=== PATIENT | female | born 2000 | race Caucasian/White ===

== ENCOUNTER 2023-12-30 17:29 | Inpatient (IN) ==
[2023-12-30 18:11] LABS: Pregnancy Test, Urine Negative (Negative)
[2023-12-30 18:12] LABS: Basophils # (auto) 0.05 K/uL (0.00-0.20); Basophils % (auto) 0.6 %; Eosinophils # (auto) 0.02 K/uL (0.00-0.50); Eosinophils % (auto) 0.2 %; Hematocrit (blood only) 44.2 % (37.0-47.0); Hemoglobin 15.6 g/dl (12.0-16.0); Immature Granulocytes # (auto) 0.03 K/uL (0.01-0.20); Immature Granulocytes % (auto) 0.3 %; Lymphocytes # (auto) 2.22 K/uL (1.20-3.40); Lymphocytes % (auto) 25.7 %; Mean Corpuscular Hgb Conc 35.3 g/dL (32.0-36.0); Mean Corpuscular Volume 87.7 fL (80.0-100.0); Mean Platelet Volume 10.2 fL (9.4-12.4); Monocytes # (auto) 0.47 K/uL (0.11-0.59); Monocytes % (auto) 5.4 %; Neutrophils # (auto) 5.85 K/uL (1.40-6.50); Neutrophils % (auto) 67.8 %; Platelet Count 331 K/uL (130-400); RDW Coefficient of Variation 11.6 % (11.5-14.5); RDW Standard Deviation 36.7 fL (36.4-46.3); Red Blood Count 5.04 M/uL (4.20-5.40); White Blood Count 8.64 K/ul (4.8-10.8)
[2023-12-30 18:16] LABS: Appearance Urine Turbid (Clear); Bacteria Urine Automated 1+ (None Seen); Bilirubin Urine Negative (Negative); Blood Urine Negative (Negative); Cast Urine Automated 0-2 /lpf (0-2); Color Urine Yellow; Epithelial Cell Urine Auto 0-2 /hpf (0-2); Glucose Urine UA Negative (Negative); Ketones Urine Trace (Negative); Leukocyte Esterase Urine Negative (Negative); Nitrite Urine Negative (Negative); Protein Urine Negative (Negative); RBC Urine Automated 0-2 /hpf (0-2); Specific Gravity Urine 1.021 (1.000-1.030); Urobilinogen Urine Negative (Negative); WBC Urine Automated 0-5 /hpf (0-5)
[2023-12-30 18:28] LABS: Albumin Globulin Ratio 1.8 (0.9-2); Albumin Level 5.1 gm/dl (3.4-5.0); BUN Creatinine Ratio 12.8 (10-20); Bilirubin,Total 1.1 mg/dl (0.2-1.0); Calcium 9.9 mg/dl (8.6-10.3); Globulin 2.9 gm/dl (2.5-4.0); Potassium 3.7 mmol/L (3.5-5.1)
[2023-12-30 18:33] LABS: Acetaminophen < 3 ug/ml (10-30); Salicylate < 3.0 mg/dl (3.0-30)
[2023-12-30 18:33] LABS: Amphetamines+Metham, Urine Neg (Neg); Barbiturates, Urine Neg (Neg); Benzodiazepine, Urine Neg (Neg); Cocaine, Urine Neg (Neg); Fentanyl, Urine Neg (Neg); MDMA (Ecstacy), Urine Neg (Neg); Marijuana, Urine Neg (Neg); Methadone, Urine Neg (Neg); Opiate, Urine Neg (Neg); Phencyclidine, Urine Neg (Neg)
[2023-12-30 18:42] LABS: Thyroid Stimulating Hormone 0.863 uIu/ml (0.300-4.500)
--- NOTE | 2023-12-30 19:54 | Emergency Department Note ---
Impression & Plan Depression, Deliberate self-cutting, Suicidal ideation ED Provider Note ED Provider Note NAME: VENTURA JUNG AGE:23 SEX: Female : 2000 ARRIVES VIA: Private vehicle INFORMANT: Patient ED PROVIDER(s): Shawna Zamorano DO CHIEF COMPLAINT: Mental health evaluation HPI: This is a 23-year-old female who presents for mental health evaluation. 302 petitioning statement written by [facility] staff whom she has been seeing in addition to mental health providers at [facility]. Patient admits to increased depression and self-harm with cutting yesterday. She has had thoughts of suicidal ideation although no plan. She has previously been inpatient for mental health treatment. She denies any homicidal ideation. She states her medications were adjusted 2 weeks ago and states while she has not had any side effects she is also not noticed any improvement. PAST MEDICAL HISTORY:See Below PAST SURGICAL HISTORY:See Below FAMILY HISTORY:See Below SOCIAL HISTORY:See Below HOME MEDICATIONS:See Below ALLERGIES:See Below VITALS:See Below PHYSICAL EXAMINATION: GENERAL: alert, well appearing, well nourished, no distress, non-toxic EYE EXAM: normal conjunctiva, PERRL and EOM's grossly intact OROPHARYNX: no exudate, no erythema, lips, buccal mucosa, and tongue normal and mucous membranes are moist NECK: supple, no nuchal rigidity, no adenopathy, non-tender LUNGS: Clear to auscultation. Normal chest wall mechanics, no w/r/r HEART: no murmurs, S1 normal and S2 normal ABDOMEN: abdomen soft, non-tender, normo-active bowel sounds, no masses, no rebound or guarding. BACK: Back is symmetrical on inspection and there is no deformity, no midline tenderness, no CVA tenderness. SKIN: no rashes, petechiae, orbruising UPPER EXTREMITIES: upper extremities are grossly normal. FROM, nml pulses b/l. LOWER EXTREMITIES: No pitting edema. FROM, nml pulses b/l. NEURO EXAM: Normal sensorium, cranial nerves II-XII grossly intact, normal speech, no facial droop,nogross weakness of arms, no gross weakness of legs. Gross sensation intact. No ataxia. Vital Signs: reviewed and remarkable Differential Diagnosis: mood disorder, suicidal ideation, anxiety, depression, substance abuse, toxidrome, infection, hypoglycemia, electrolyte abnormalities, ICH as well as others were considered. MEDICAL DECISION MAKING: This is a 23-year-old female who presents emerged part for mental health evaluation. 302 petitioning statement written by staff at [facility]. Labs drawn and sent urine collected and sent per protocol. These are reassuring. Patient had no concern for any injury or illness. Patient seen and evaluated by case management and referred to [facility] for additional inpatient treatment. Patient willing to sign and voluntarily so 302 was declined. Patient accepted to [facility] for additional inpatient mental health treatment. Consultation(s): 1944: Please see case management note for their formal evaluation. 302 denied by me as patient willing to sign in. She was referred to [facility] who was down her at this time to begin their evaluation process. 2149: Patient accepted by . ER Treatment Provided: See below Diagnostics Interpreted By Me: -Laboratory studies: As stated above and show below. Triage Nursing Note Reviewed Prior/Outside Records Reviewed Past Med/Surg History Problem List (Updated 12/30/23 @ 19:54 by Shawna Zamorano, ) Suicidal ideation (Acute) Deliberate self-cutting (Acute) Depression (Acute) Social History Smoking Status: Current every day smoker Tobacco Type: E-cigarettes / Vaping Preferred Language: Danish Gender Identity: Female Allergies Allergies Allergy/AdvReac Type Severity Reaction Status Date / Time No Known Allergies Allergy Verified 12/30/23 17:56 Home Meds Home Medications Medication Instructions Recorded Confirmed BuSpar 30 mg PO HS 12/30/23 12/30/23 Lamictal 200 mg PO HS 12/30/23 12/30/23 Topamax 100 mg PO HS 12/30/23 12/30/23 Results & Data (ED) Vital Signs Vital Signs - 24 hr 12/30/23 17:46 12/30/23 19:45 Temperature 36.7 C Temperature Source Oral Pulse Rate 104 H Pulse Rate [Right Finger] 76 Pulse Rhythm [Right Finger] Regular Pulse Strength [Right Finger] Normal Respiratory Rate 19 20 Respiratory Effort / Characteristics Non-Labored Spontaneous Respiratory Depth Normal Respiratory Pattern Regular Blood Pressure 150/90 H Blood Pressure [Left Arm] 102/67 Blood Pressure Mean 110 Blood Pressure Mean [Left Arm] 78 Blood Pressure Position [Left Arm] Lying Pulse Oximetry 100 100 Oxygen Delivery Method Room Air Room Air Sepsis Recent Fever Within 48 Hours No Sepsis New/Unexplained Change in Mental Status No Sepsis Action Taken by Nursing No Action Required Laboratory Data 12/30/23 17:47 12/30/23 17:47 Lab Results 12/30/23 12/30/23 12/30/23 Range/Units 17:39 17:41 17:47 WBC 8.64 (4.8-10.8) K/ul RBC 5.04 (4.20-5.40) M/uL Hgb 15.6 (12.0-16.0) g/dl Hct 44.2 (37.0-47.0) % MCV 87.7 (80.0-100.0) fL MCH 31.0 (25.0-34.0) pg MCHC 35.3 (32.0-36.0) g/dL RDW Std Deviation 36.7 (36.4-46.3) fL RDW Coeff of Nai 11.6 (11.5-14.5) % Plt Count 331 (130-400) K/uL MPV 10.2 (9.4-12.4) fL Immature Gran % (Auto) 0.3 % Neut % (Auto) 67.8 % Lymph % (Auto) 25.7 % Garvin % (Auto) 5.4 % Eos % (Auto) 0.2 % Baso % (Auto) 0.6 % Neut # (Auto) 5.85 (1.40-6.50) K/uL Lymph # (Auto) 2.22 (1.20-3.40) K/uL Garvin # (Auto) 0.47 (0.11-0.59) K/uL Eos # (Auto) 0.02 (0.00-0.50) K/uL Baso # (Auto) 0.05 (0.00-0.20) K/uL Immature Gran # (Auto) 0.03 (0.01-0.20) K/uL Sodium 140 (136-145) mmol/L Potassium 3.7 (3.5-5.1) mmol/L Chloride 109 H (98-107) mmol/L Carbon Dioxide 23 (21-32) mmol/L Anion Gap 8 (3-11) BUN 12 (6-23) mg/dl Creatinine 0.94 (0.6-1.2) mg/dl Est Cr Clr Drug Dosing 93.0 ml/min eGFR 86.90 BUN/Creatinine Ratio 12.8 (10-20) Glucose 72 (70-99(Fasting)) mg/dl Calcium 9.9 (8.6-10.3) mg/dl Total Bilirubin 1.1 H (0.2-1.0) mg/dl AST 14 (13-39) U/L ALT 14 (7-52) U/L Alkaline Phosphatase 71 (34-104) U/L Total Protein 8.0 (6.0-8.3) gm/dl Albumin 5.1 H (3.4-5.0) gm/dl Globulin 2.9 (2.5-4.0) gm/dl Albumin/Globulin Ratio 1.8 (0.9-2) TSH 0.863 (0.300-4.500) uIu/ml Urine Color Yellow Urine Appearance Turbid A (Clear) Urine pH 8.0 H (4.5-7.5) Ur Specific [place] 1.021 (1.000-1.030) Urine Protein Negative (Negative) Urine Glucose (UA) Negative (Negative) Urine Ketones Trace H (Negative) Urine Blood Negative (Negative) Urine Nitrite Negative (Negative) Urine Bilirubin Negative (Negative) Urine Urobilinogen Negative (Negative) Ur Leukocyte Esterase Negative (Negative) Urine WBC (Auto) 0-5 (0-5) /hpf Urine RBC (Auto) 0-2 (0-2) /hpf U Hyaline Cast (Auto) 0-2 (0-2) /lpf U Epithel Cells (Auto) 0-2 (0-2) /hpf Urine Bacteria (Auto) 1+ H (None Seen) Urine Test Negative (Negative) Salicylates < 3.0 L (3.0-30) mg/dl Urine Opiates Screen Neg (Neg) Ur Methadone, Qual Neg (Neg) Urine Fentanyl Screen Neg (Neg) Acetaminophen < 3 L (10-30) ug/ml Urine Barbiturates Neg (Neg) Ur Phencyclidine (PCP) Neg (Neg) U Amphetamin/Meth Scrn Neg (Neg) MDMA (Ecstasy) Screen Neg (Neg) U Benzodiazepines Scrn Neg (Neg) Ur Cocaine Metabolite Neg (Neg) U Marijuana (THC) Screen Neg (Neg) Ethyl Alcohol mg/dL < 10.0 (<10.0) mg/dl SARS-CoV-2, RNA, NAAT NEGATIVE (NEGATIVE) Discharge Plan Visit Data Chief Complaint: Mental Health Evaluation Stated Complaint: [facility] ED Provider: Shawna Zamorano Discharge Problem: Depression, Deliberate self-cutting, Suicidal ideation Forms Stand Alone Forms: [facility], Suicide Prevention Resources Prescriptions Prescriptions: No Action BuSpar 30 mg tablet 30 mg PO HS Lamictal 200 mg tablet 200 mg PO HS Topamax 100 mg tablet 100 mg PO HS Referrals [facility] [Primary Care Provider] -
[2023-12-30] MEDS ORDERED: BISMUTH SUBSALICYLATE 262 MG CHEW PO PRN (22:50)
[2023-12-30] MEDS ORDERED: ACETAMINOPHEN 325 MG TAB PO PRN (22:50)
[2023-12-30] MEDS ORDERED: SODIUM CHLORIDE 0.65% NA SOLN 45 ML (OCEAN) PRN (22:50)
[2023-12-30] MEDS ORDERED: MAGNESIUM HYDROXIDE SUSP 30 ML UDC PO PRN (22:50)
[2023-12-30] MEDS ORDERED: hydrOXYzine HCl 25 MG TAB PO PRN ×2 (22:50)
[2023-12-30] MEDS ORDERED: ALUMINUM/MAGNESIUM SUSP 30 ML UDC PO PRN (22:50)
[2023-12-30] MEDS: lamoTRIgine 100 MG TAB PO SCH (23:28)
[2023-12-30] MEDS: busPIRone 15 MG TAB PO SCH (23:28)
[2023-12-30] MEDS: TOPIRAMATE 100 MG TAB PO SCH (23:28)
--- NOTE | 2023-12-31 09:22 | History & Physical ---
Date of Service December 31, 2023 Impression / Recommendations Impression DISHA JUNG is a 23-year-old F who currently lives alone on campus in the dorms, has a history of bipolar disorder and anxiety, and was admitted on 12/30/23 21:28 on a 201 voluntary commitment for escalating self-harm and increased SI. Diagnostically consistent with unspecified depression with differential including MDD vs bipolar depression vs adjustment disorder with depressed mood vs acute exacerbation of BPD in context of feeling abandonment of girlfriend and therapist absences. Discussed medication treatment options in detail. She wishes to continue with prior to admission lamictal for mood stabilization, Buspar for anxiety and Topimax off label for self-harm urges, weight gain. Discussed risks, benefits and alternatives as well as side effects including Aleksandar's Joseph rash with lamictal. MNPR due to trauma history and significant social discomfort around new people related to this Overall I spent a total of 75 minutes for this admission including review of chart records, review of labwork, direct evaluation of the patient, counseling the patient, ordering medication, risk assessment, discussion with the psychiatric liason RN and documentation in the electronic health record. (1) Deliberate self-cutting: (2) Depression: Plan 12/31/2023: The patient was admitted to the [facility] ([facility] inpatient mental health unit) on q15 min checks (behavioral with suicide precautions) for safety. The patient will participate in group, recreational, and milieu therapies and will be offered additional individual and family sessions as clinically appropriate. -Continue EVENT EXECUTIVE lamictal, Buspar, Topimax -Screening questionnaires of Yoselin BPD and Mood Disorder Questionnaire -Reviewed option for support meeting which she will consider -Discussed option for referral for IOP with DBT focus, she declines this Inventory Assets Strengths: supportive relationships, willing to get treatment Needs: safety and stabilization, medication adjustment, additional coping skills, increased outpatient services Suicide Risk Level Suicide Risk Level: Moderate (q15 min suicide checks) (SI and self-harm prior to admission but denies SI currently, feels better supported by friends and feels safe in the hospital and able to ask for support if needed) Risk Factors Assessment Male: No : Yes Do You Have Access To A Gun?: No Health Problems: No Mental Health Diagnoses: Yes Substance Use Disorders: No Previous Attempt: Yes (interrupted attempt) Family History of Suicide: No Previous Psychiatric Hospitalization: Yes Hopelessness: No Protective Factors Assessment Employed: No Stable Relationships: Yes Supportive Family: Yes Good Rapport with Provider: Yes Psychiatric History Identifying Data DISHA JUNG is a 23-year-old F who currently lives alone on campus in the dorms, has a history of bipolar disorder and anxiety, and was admitted on 12/30/23 21:28 on a 201 voluntary commitment for escalating self-harm and increased SI. Chief Complaint "This bed s*cks". History of Present Illness Disha presented to the hospital at the recommendation of a [facility] therapist who completed a 302 petition after reporting increased SI and self-harm via cutting using a estimator paperboard boxes. She identifies recent stressors including academic difficulty and increased social isolation since her girlfriend graduated last spring and moved out of state. She cuts on average every 3 days and feels this has been "less intense" overall compared with her self-harm behaviors historically but has increased since October which she attributes to school stress and loneliness. On evening she had an acute worsening of SI while self-harming and called [facility] Crisis line and was able to safety plan but after meeting with [facility] therapist the following day she reported increased depression and thoughts of suicide using the estimator paperboard boxes she self-harms with. Reflects that "I'm usually good at distracting myself when I feel like that but no one was available". Expands that she hasn't been able to meet with her long-time outpatient therapist due to forgetting to get her scheduled so they haven't meet in about three weeks (she is scheduled for upcoming appointments for the next three weeks). Her girlfriend is currently away on vacation and the guys she typically plays online games with were playing a different game that evening. She reflects that yesterday they learned she was in the hospital and emphasized that she should always feel able to reach out to them as they would change games if she ever wants to connect or feels lonely which she found very validating. She minimizes any recent significant mood symptoms reflecting that "that night was overwhelming" and that she is considering taking an academic withdrawal to lessen her stress. She's hopeful this admission can be very brief as "this won't help me, I'm away from my supports". She denies current SI. Reports chronic intermittent SI, on average every other day over the past two weeks, without plan (except thought of cutting deeper the night she called Crisis). Reports feeling "tired" today due to uncomfortable mattress. Feels she'll struggle to eat in the inpatient setting due to discomfort of being in a new environment which leads to her having nausea. She prefers not to make any medication changes, finds her medications of lamictal, Buspar and Topimax (started off-label to help with antipsychotic- induced weight gain, she feels it might help with self-harm urges) helpful and without side effects. Psychiatric ROS notable for history of delmar with risk taking and hypersexual behaviors with decreased need for sleep. History of trauma. Self-harm, went from December 2022 - October 2023 without self-harming which she attributes to support of her girlfriend and low stress levels. Past Psychiatric History Previous Psych History: BPAD and anxiety -History of IOP and PHP in the past with DBT competent, found unhelpful Current Psychiatric Diagnosis: unspecified depressive do Outpatient Services: therapist George Alford via teletherapy, [place] for medication management Previous Psych Admissions: [facility] Do You Have Access To A Gun?: No History of Previous Suicide Attempt: Yes (interrupted attempt in 2019) Past Medication Trials: abilify in past Allergies Allergy/AdvReac Type Severity Reaction Status Date / Time No Known Allergies Allergy Verified 12/30/23 17:56 Home Medications Medication Instructions Recorded Confirmed Type BuSpar 30 mg PO HS 12/30/23 12/30/23 History Lamictal 200 mg PO HS 12/30/23 12/30/23 History Topamax 100 mg PO HS 12/30/23 12/30/23 History Family History Family History of: Doesn't Know Alcohol History Hx of Alcohol Use Over the Past 12 Months: No AUDIT Total Score: 0 history of binge use in the past, denies any concerns about current use, maybe one drink per month on average Smoking Use Have You Smoked or Used Tobacco Products in the Last 30 Days: Yes tobacco type: e-cigarettes Smoking Status: Current every day smoker (reports vaping very significant amounts ) Substance History Hx of Prescription Med Misuse Over the Past 12 Months: No Hx of Over the Counter Med Misuse Over the Past 12 Months: No Hx of Inhalent Misuse Over the Past 12 Months: No Hx of Organic Substance Use Over the Past 12 Months: No Hx of Illegal Substances/Street Drug Use Over Past 12 Months: No Problems as a Result of Past Substance Use: None Identified Personal History Living Arrangements: Dorm Highest Grade Completed: Some College Beliefs That Will Affect Care: None Current Legal Problems: No Hx Legal Problems: No Hx Traumatic Life Events: Yes Patient History Social History Smoking Status: Current every day smoker Tobacco Type: E-cigarettes / Vaping Preferred Language: Cameroonian Communication Ability: Effective Wind Turbine Mechanic Required: No Beliefs That Will Affect Care: None Feels Safe at Home: Yes Gender Identity: Female Assistive Devices: Glasses Review of Systems Review of Systems: All systems reviewed & are unremarkable except as noted in HPI & below Physical Exam Psychiatric: Orientation: alert and oriented x 3 Apperance: appropriately dressed and appropriately groomed Eye Contact: good eye contact Motor Behavior: no abnormal motor movements Speech: normal rate/rhythm/volume of speech Affect: + constricted affect Mood: + anxious mood; no depressed mood Thought Process: goal directed thought process Thought Content: reality based without delusions Suicidal Thoughts: denies suicidal thoughts (but having prior to admission and unable to safety plan in outpatient setti), denies suicidal plan and denies suicidal intent Homicidal Thoughts: denies homicidal thoughts Hallucinations: no auditory hallucinations and no visual hallucinations Cognition: recent memory grossly intact, remote memory grossly intact, attention grossly intact and language grossly intact Estimated Intelligence: consistent with education level Insight: + limited insight Judgment: + limited judgement Vital Signs (Past 24 Hours): Last Vital Signs Temp 36.3 C L 12/31/23 06:37 Pulse 72 12/31/23 06:38 Resp 16 12/31/23 06:37 BP 96/62 L 12/31/23 06:38 Pulse Ox 98 12/31/23 06:37 O2 Del Method Room Air 12/31/23 06:37 Exam Statement: A physical exam was performed in the ED by Dr. Zamorano for the purposes of medical clearance. I accept that physical as correct and adequate for the purposes of the inpatient physical exam. Results & Data ([facility]) Laboratory Results Laboratory Results - last 24 hr 12/30/23 12/30/23 12/30/23 17:39 17:41 17:47 WBC 8.64 RBC 5.04 Hgb 15.6 Hct 44.2 MCV 87.7 MCH 31.0 MCHC 35.3 RDW Std Deviation 36.7 RDW Coeff of Nai 11.6 Plt Count 331 MPV 10.2 Immature Gran % (Auto) 0.3 Neut % (Auto) 67.8 Lymph % (Auto) 25.7 [place] % (Auto) 5.4 Eos % (Auto) 0.2 Baso % (Auto) 0.6 Neut # (Auto) 5.85 Lymph # (Auto) 2.22 [place] # (Auto) 0.47 Eos # (Auto) 0.02 Baso # (Auto) 0.05 Immature Gran # (Auto) 0.03 Sodium 140 Potassium 3.7 Chloride 109 H Carbon Dioxide 23 Anion Gap 8 BUN 12 Creatinine 0.94 Est Cr Clr Drug Dosing 93.0 eGFR 86.90 BUN/Creatinine Ratio 12.8 Glucose 72 Calcium 9.9 Total Bilirubin 1.1 H AST 14 ALT 14 Alkaline Phosphatase 71 Total Protein 8.0 Albumin 5.1 H Globulin 2.9 Albumin/Globulin Ratio 1.8 TSH 0.863 Urine Color Yellow Urine Appearance Turbid A Urine pH 8.0 H Ur Specific [place] 1.021 Urine Protein Negative Urine Glucose (UA) Negative Urine Ketones Trace H Urine Blood Negative Urine Nitrite Negative Urine Bilirubin Negative Urine Urobilinogen Negative Ur Leukocyte Esterase Negative Urine WBC (Auto) 0-5 Urine RBC (Auto) 0-2 U Hyaline Cast (Auto) 0-2 U Epithel Cells (Auto) 0-2 Urine Bacteria (Auto) 1+ H Urine Test Negative POC Ur Test Pending Salicylates < 3.0 L Urine Opiates Screen Neg Ur Methadone, Qual Neg Urine Fentanyl Screen Neg Acetaminophen < 3 L Urine Barbiturates Neg Ur Phencyclidine (PCP) Neg U Amphetamin/Meth Scrn Neg MDMA (Ecstasy) Screen Neg U Benzodiazepines Scrn Neg Ur Cocaine Metabolite Neg U Marijuana (THC) Screen Neg Ethyl Alcohol mg/dL < 10.0 SARS-CoV-2, RNA, NAAT NEGATIVE Current Inpatient Medications Current Inpatient Medications: Current Inpatient Medications Acetaminophen (Acetaminophen 325 Mg Tab) 650 mg PO Q4H PRN PRN Reason: Headache or Minor Fever Stop: 01/29/24 22:49 Al Hydrox/Mg Hydrox/Simethicone (Aluminum/Magnesium Susp 30 Ml Udc) 30 ml PO Q4H PRN PRN Reason: GI Upset Stop: 01/29/24 22:49 Bismuth Subsalicylate (Bismuth Subsalicylate 262 Mg Chew) 2 tab PO Q30M PRN PRN Reason: Loose Stool/Diarrhea Stop: 01/29/24 22:49 Buspirone HCl (Buspirone 15 Mg Tab) 30 mg PO [facility] Stop: 01/29/24 22:59 Last Admin: 12/30/23 23:28 Dose: 30 mg Hydroxyzine HCl (Hydroxyzine Hcl 25 Mg Tab) 50 mg PO HSZ PRN PRN Reason: Insomnia Stop: 01/29/24 22:49 Hydroxyzine HCl (Hydroxyzine Hcl 25 Mg Tab) 25 mg PO Q4H PRN PRN Reason: Anxiety Stop: 01/29/24 22:49 Lamotrigine (Lamotrigine 100 Mg Tab) 200 mg PO [facility]; Protocol Stop: 01/29/24 22:59 Last Admin: 12/30/23 23:28 Dose: 200 mg Magnesium Hydroxide (Magnesium Hydroxide Susp 30 Ml Udc) 30 ml PO DAILY PRN PRN Reason: Constipation Stop: 01/29/24 22:49 Miscellaneous (Remove Nicoderm Patch) 1 each N/A DAILY@0859 [facility] Stop: 01/30/24 08:58 Nicotine (Nicotine 14 Mg/24 Hr Patch) 1 patch TD [facility] Stop: 01/30/24 08:59 Nicotine Polacrilex (Nicotine Polacrilex 2 Mg Gum) 2 piece MT PRN PRN PRN Reason: Nicotine Withdrawal Symptoms Stop: 01/29/24 22:49 Sodium Chloride (Sodium Chloride 0.65% Na Soln 45 Ml ([place])) 1 - 2 sprays NA PRN PRN PRN Reason: Nasal Dryness/Congestion Stop: 01/29/24 22:49 Topiramate (Topiramate 100 Mg Tab) 100 mg PO [facility] Stop: 01/29/24 22:59 Last Admin: 12/30/23 23:28 Dose: 100 mg
[2023-12-31] MEDS: NICOTINE POLACRILEX 2 MG GUM MT PRN (12:50)
[2023-12-31] MEDS: NICOTINE 21 MG/24 HR TDSY TD SCH (12:52)
[2023-12-31] MEDS: NICOTINE 14 MG/24 HR PATCH TD SCH (15:18)
--- NOTE | 2024-01-01 10:39 | Discharge Summary ---
Date of Service January 01, 2024 History of Present Illness Disha presented to the hospital at the recommendation of a [facility] therapist who completed a 302 petition after reporting increased SI and self-harm via cutting using a switch box installer. She identifies recent stressors including academic difficulty and increased social isolation since her girlfriend graduated last spring and moved out of state. She cuts on average every 3 days and feels this has been "less intense" overall compared with her self-harm behaviors historically but has increased since October which she attributes to school stress and loneliness. On evening she had an acute worsening of SI while self-harming and called [facility] and was able to safety plan but after meeting with [facility] therapist the following day she reported increased depression and thoughts of suicide using the switch box installer she self-harms with. Reflects that "I'm usually good at distracting myself when I feel like that but no one was available". Expands that she hasn't been able to meet with her long- time outpatient therapist due to forgetting to get her scheduled so they haven't meet in about three weeks (she is scheduled for upcoming appointments for the next three weeks). Her girlfriend is currently away on vacation and the guys she typically plays online games with were playing a different game that evening. She reflects that yesterday they learned she was in the hospital and emphasized that she should always feel able to reach out to them as they would change games if she ever wants to connect or feels lonely which she found very validating. She minimizes any recent significant mood symptoms reflecting that "that night was overwhelming" and that she is considering taking an academic withdrawal to lessen her stress. She's hopeful this admission can be very brief as "this won't help me, I'm away from my supports". She denies current SI. Reports chronic intermittent SI, on average every other day over the past two weeks, without plan (except thought of cutting deeper the night she called Crisis). Reports feeling "tired" today due to uncomfortable mattress. Feels she'll struggle to eat in the inpatient setting due to discomfort of being in a new environment which leads to her having nausea. She prefers not to make any medication changes, finds her medications of lamictal, Buspar and Topimax (started off-label to help with antipsychotic- induced weight gain, she feels it might help with self-harm urges) helpful and without side effects. Psychiatric ROS notable for history of delmar with risk taking and hypersexual behaviors with decreased need for sleep. History of trauma. Self-harm, went from December 2022 - October 2023 without self-harming which she attributes to support of her girlfriend and low stress levels. Physical Exam Vital Signs (Past 24 Hours) Last Vital Signs Temp 36.3 C L 12/31/23 06:37 Pulse 72 12/31/23 06:38 Resp 16 12/31/23 06:37 BP 96/62 L 12/31/23 06:38 Pulse Ox 98 12/31/23 06:37 O2 Del Method Room Air 12/31/23 06:37 Principal Diagnosis Unspecified Depressive Disorder Psychiatric Data See daily stay summary. In short, patient was engaged with the social/therapeutic milieu of the unit, safety was maintained and the patient was cooperative with care. There were no medication changes, discussed option for mirtazapine or antidepressant trial vs naltrexone off-label for self-harm urges, she preferred to continue with her current medications. She declined a support session but had a good visit with her parents during her admission and safety plan was completed prior to discharge. They participated in safety planning and in discussions about ways to seek support and recognizing warning signs and utilizing coping skills. Reviewed ways to have their safety plan and contacts easily available should thoughts of SI re-emerge in the future. Reviewed importance of seeking emergency care should SI intensify, worsen or should they feel unsafe in the future which they agree to do. On the day of discharge they stated their mood was "I'll be better when I'm not in here" and remained future-oriented including spending time with her friend locally and playing games online with her other friends, meeting with her academic success coordinator and then returning home with her family and engaging in aftercare appointments for psychiatry and therapy. Day of Discharge Assessment Today the patient voices readiness for discharge. They note improvement in mood and anxiety. They deny thoughts of harm to self or others. Thoughts are organized and they are clinically improved from admission. There is no evidence of psychosis. They improved in the hospital with support and medication adjustments. They agree to take medications as prescribed and keep follow-up appointments. At the time of the discharge they are deemed to be stable and appropriate for outpatient level of care. They are not deemed to be at imminent risk of harm to self or others. They are aware of emergency and crisis services. Knows to call 911 or go to nearest emergency care center if in a crisis which cannot be handled as an outpatient. Suicide risk assessment: Acute risk is low given improvement in mood and denial of SI, lack of access to lethal means, hopefulness. Chronic risk is moderate given some non-modifiable risk factors: psychiatric co-morbid diagnoses, prior attempt, hx self-harm, emotional reactivity, prior psychiatric hospitalizations, mood disorder, cluster B personality disorder, trauma, but also with protective factors including: student, good social support, sense of responsibility to family and social supports, outpatient care in place, positive problem solving, willingness to engage with treatment and self-observation. Counseled on ways to reduce acute and chronic risk including engaging with outpatient providers, using safety plan if needed, utilizing supports, taking medication, and using coping skills. Modifiable risk factors of SI and depression were addressed during hospit alization through development of new coping skills, safety planning, and exploring ways to lessen stress/increase supports. Discharge physical exam: See admission H&P, MSE per above and day of discharge summary. Overall, I spent a total of 35 minutes on this case including meeting with the patient, reviewing the chart, nursing report, multidisciplinary team meeting, discharge orders, anticipatory planning, safety planning, risk assessment and documentation. Transition of Care Transition Of Care Record: was reviewed with the patient Advance Directives Advance Directives Information Provided: Yes Mental Health Advance Directive: No Advance Directives on File: No Living Will: No Power of Home Service Technician: No Advance Directives Reason:: Declines as Mental Health Visit. Suicide Risk Level Suicide Risk Level Comments: acute risk is low, see assessment above Risk Factors Assessment Male: No : Yes Do You Have Access To A Gun?: No Health Problems: No Mental Health Diagnoses: Yes Substance Use Disorders: No Previous Attempt: Yes (interrupted attempt) Family History of Suicide: No Previous Psychiatric Hospitalization: Yes Hopelessness: No Protective Factors Assessment Employed: No Stable Relationships: Yes Supportive Family: Yes Good Rapport with Provider: Yes Discharge Data Lab Results 12/30/23 12/30/23 12/30/23 17:39 17:41 17:47 WBC 8.64 RBC 5.04 Hgb 15.6 Hct 44.2 MCV 87.7 MCH 31.0 MCHC 35.3 RDW Std Deviation 36.7 RDW Coeff of Nai 11.6 Plt Count 331 MPV 10.2 Immature Gran % (Auto) 0.3 Neut % (Auto) 67.8 Lymph % (Auto) 25.7 [place] % (Auto) 5.4 Eos % (Auto) 0.2 Baso % (Auto) 0.6 Neut # (Auto) 5.85 Lymph # (Auto) 2.22 [place] # (Auto) 0.47 Eos # (Auto) 0.02 Baso # (Auto) 0.05 Immature Gran # (Auto) 0.03 Sodium 140 Potassium 3.7 Chloride 109 H Carbon Dioxide 23 Anion Gap 8 BUN 12 Creatinine 0.94 Est Cr Clr Drug Dosing 93.0 eGFR 86.90 BUN/Creatinine Ratio 12.8 Glucose 72 Calcium 9.9 Total Bilirubin 1.1 H AST 14 ALT 14 Alkaline Phosphatase 71 Total Protein 8.0 Albumin 5.1 H Globulin 2.9 Albumin/Globulin Ratio 1.8 TSH 0.863 Urine Color Yellow Urine Appearance Turbid A Urine pH 8.0 H Ur Specific [place] 1.021 Urine Protein Negative Urine Glucose (UA) Negative Urine Ketones Trace H Urine Blood Negative Urine Nitrite Negative Urine Bilirubin Negative Urine Urobilinogen Negative Ur Leukocyte Esterase Negative Urine WBC (Auto) 0-5 Urine RBC (Auto) 0-2 U Hyaline Cast (Auto) 0-2 U Epithel Cells (Auto) 0-2 Urine Bacteria (Auto) 1+ H Urine Test Negative Salicylates < 3.0 L Urine Opiates Screen Neg Ur Methadone, Qual Neg Urine Fentanyl Screen Neg Acetaminophen < 3 L Urine Barbiturates Neg Ur Phencyclidine (PCP) Neg U Amphetamin/Meth Scrn Neg MDMA (Ecstasy) Screen Neg U Benzodiazepines Scrn Neg Ur Cocaine Metabolite Neg U Marijuana (THC) Screen Neg Ethyl Alcohol mg/dL < 10.0 SARS-CoV-2, RNA, NAAT NEGATIVE Hospital Course (1) Depression: (2) Deliberate self-cutting: (3) Bipolar disorder: (4) Borderline personality disorder: Plan 01/01/2024: -Desires discharge and no 302 criteria -Reviewed questionnaires consistent with BPAD and BPD diagnoses, discussed benefits of mindfulness and DBT to address emotional reactivity and self-harm 12/31/2023: The patient was admitted to the [facility] (locked inpatient mental health unit) on q15 min checks (behavioral with suicide precautions) for safety. The patient will participate in group, recreational, and milieu therapies and will be offered additional individual and family sessions as clinically appropriate. -Continue LICENSED SURVEYOR Meredith garcia, [employer] -Screening questionnaires of Yoselin BPD and Mood Disorder Questionnaire -Reviewed option for support meeting which she will consider -Discussed option for referral for IOP with DBT focus, she declines this Mental Health & Subst Abuse Tx Therapist Name of Therapist: Samm Alford Date of Therapist Appointment: Tuesday01/04/24 Discharge Plan Discharge Items Patient Disposition: Home - Self-Care Reason For Visit: DEPRESSION, SI Discharge Diagnosis: Unspecified Depressive Disorder Activity: Resume your previous activity Non-emergency contact: Primary Care Provider, Psychiatrist and Therapist Call non-emergency contact if: you have any medication questions and your symptoms worsen Follow-up/Referrals: Arjay,[facility] [Primary Care Provider] - Diet: Regular Addtl Attending Provider Instructions: Optional mobile apps: -Suicide safety plan -Virtual Hope Box SPECIAL CARE INSTRUCTIONS: 1. Follow through with your scheduled aftercare appointments. If unable to keep an appointment, please call to reschedule. 2. Take your medication only as prescribed. Medication should not be changed or stopped without the approval of your doctor. In the event of worsening symptoms or concerns about side effects, contact your doctor immediately. 3. Utilize new healthy coping skills, anger management skills, and stress management skills learned during your hospitalization. Journal feelings and process them with a support person. Identify stressors or situations that may result in relapse, deterioration or inappropriate behaviors and develop a plan to deal with those issues. 4. If your coping skills are ineffective and you are in crisis, contact your outpatient providers for direction. If unable to reach your providers, please call the [facility] CRISIS LINE AT , go to the [facility] walk-in center at [address], [address], [place], or go to the closest Emergency Room. 5. Avoid alcohol and un-prescribed drugs. 6. You have been provided with the Mental Health Advance Directives Pamphlet for your review. 7. Your condition is stable for discharge to outpatient level of care, but recovery is an ongoing process. Ifthoughts to harm yourself or others return, follow the safety plan developed during your stay. Planning for a safe return home includes securing weapons. Our treatment team recommends weaponsbe removed from the home until your outpatient provider reassesses your progress. In rare cases where the items themselvescannot be removed, guns and ammunitionshould be secured separatelyand keys stored by a reliable personoutside of the home. If you were admitted on an involuntary commitment, the police or other legal authorities may be involved in this process. AFTERCARE APPOINTMENTS: * Please call your insurance company prior to your scheduled appointment to confirm your aftercare providers are covered. Take your insurance information to your appointments. WHO TO CALL AND WHEN: Medical Emergencies: For questions or emergencies related to your hospital stay, please contact the Inpatient Behavioral Health Unit at [phone]. A elementary substitute teacher is on-call 27/09 for the Behavioral Health Unit for e mergencies At any time you feel your situation is an emergency, you may also call 911 immediately. National Crisis Hotline: 931 Pending Studies at Discharge: No Stand-Alone Forms: My [facility] [email or web address], Smoking Cessation Medications and DC Order Prescriptions: Continued BuSpar 30 mg tablet 30 mg PO HS Lamictal 200 mg tablet 200 mg PO HS Topamax 100 mg tablet 100 mg PO HS Discharge Orders: Discharge Order (Routine); Ordered 01/01/24 Ordered By: Jane Hahn Admission Data Admit Date/Time: 12/30/23 21:28 Attending Provider: Jane Hahn Admit Provider: Jane Hahn Primary Care Provider: [facility] Other Interventions: Discharge Summary Assessment (RN) Last Done: 01/01/24 11:01 Coding Level of Care Code 31750 D/C day mgmt > 30 min Diagnoses Depression F32.A Deliberate self-cutting Z72.89 Bipolar disorder F31.9 Borderline personality disorder F60.3
== END 2024-01-01 11:35 | disposition home or self-care (01) | DRG 881 ==
LOC: ED 17:29 → 3S 21:28